=== PATIENT | female | born 1990 | race Caucasian/White ===

== ENCOUNTER 2021-09-19 13:47 | Outpatient (CLI) | payer BC, SELFPAY ==
--- NOTE | 2021-09-19 14:00 | CRLHL7_ITS ---
For Patients: As a result of the Century Cures Act, medical imaging exams and procedure reports are released immediately into your electronic medical record. You may view this report before your referring provider. If you have questions, please contact your health care provider. INDICATION: SIZE LESS THAN DATES COMPARISON: 08/21/2021 TECHNIQUE: Real time leary scale imaging of the fetus was performed. FINDINGS: Sonographic imaging demonstrates a single living intrauterine gestation. Fetus demonstrates a regular cardiac rate of 148 beats per minute. Fetus has a breech position. The placenta lies anteriorly without evidence of placenta previa. Amniotic fluid volume appears normal and there is a single deepest vertical pocket: 4.2 cm. The estimated weight is 2542gm which lies at the 22nd %. On the prior OB ultrasound exam dated 08/21/2021 the estimated weight was at the 14th%. BPD 13th percentile. HC 23rd percentile. AC 19th percentile. FL 29th percentile. The HC/AC ratio measures 1.05 range (0.93-1.11). IMPRESSION: Sonographic gestational age 35 weeks 1 day and sonographic due date 10/23/2021. Sonographic age 6 days behind the clinical age. Estimated weight 22nd percentile. Abdominal circumference 19th percentile. Dictated by Tacho Lopez MD @ 09/19/2021 2:41:25 PM (Electronically Signed)
== END 2021-09-19 13:48 | disposition home or self-care (01) ==
LOC: US 13:48
PROVIDERS: Visit Provider Advanced Practice Midwife
DX: O36.5930 Maternal care for other known or suspected poor fetal growth, third trimester, not applicable or unspecified (principal); Z3A.35 35 weeks gestation of pregnancy
CPT/HCPCS: 76816

== ENCOUNTER 2021-09-19 16:02 | Outpatient (CLI) | payer BC, SELFPAY ==
[2021-09-20 17:54] LABS: Strep B DNA Probe NEGATIVE (Negative)
== END 2021-09-19 16:03 | disposition home or self-care (01) ==
LOC: NFLDREF 16:02
PROVIDERS: Visit Provider Advanced Practice Midwife
DX: Z34.83 Encounter for supervision of other normal pregnancy, third trimester (principal); Z3A.36 36 weeks gestation of pregnancy
CPT/HCPCS: 87081; 87653

== ENCOUNTER 2021-10-02 15:25 | Outpatient (CLI) | payer BC, SELFPAY ==
[2021-10-02] VITALS (20 sets, daily range): BP systolic 81–127; BP diastolic 45–88; PULSE 70–123; RESP 16; TEMP 36.7; O2SAT 100
[2021-10-02 17:21] LABS: Basophils Percent Auto 0.1 % (0.0-3.0); Hematocrit 36.7 % (33.0-51.0); Hemoglobin* 12.7 gm/dL (12.0-16.0); Immature Granulocytes Abs Auto 0.03 K/uL (0.00-0.30); Lymphocytes Percent Auto 22.2 % (20-44); Mean Corpuscular HGB Conc 35 gm/dL (32-36); Mean Corpuscular Hemoglobin 33 pg (26-34); Mean Corpuscular Volume 95 fL (80-100); Monocytes Percent Auto 7.2 % (0.0-11.0); Neutrophils Percent Auto 69.2 % (42.0-72.0); Platelet Count* 193 K/uL (140-440); RDW Coefficient of Variation % 12.7 % (11.5-15.5); Red Blood Count 3.87 m/uL (4.00-5.20); White Blood Count* 11.06 K/uL (4.50-11.00)
[2021-10-02 17:26] LABS: Slide Review Reflex No
[2021-10-02] MEDS: LACTATED RINGERS 1000 ML 1,000 ML 125 ML IV ×2 (18:18→19:41)
[2021-10-02] MEDS: NIFEdipine 10 MG CAPSULE PO (19:39)
--- NOTE | 2021-10-02 20:37 | P.OBLDTN_ITS ---
OB - Triage/Final Diagnosis Visit Information Date Seen: 10/02/21 Narrative: The patient is a 31 year old 5 para 1041 at 37 6/7 weeks gestation by LMP, who presents with contractions. She admits that she had been keeping up with fluid hydration today, and has had diarrhea as well. Her fetus was active. She denied leakage of fluid, unusual vaginal discharge, or vaginal bleeding. No fevers or chills. No nausea or vomiting. Fetus is known to be in a breech presentation. She is scheduled for a primary low transverse section next Friday. She declined ECV. Reason for evaluation: threatened labor Evaluation Cervical dilation (cm): 0 Laboratory results: Laboratory Tests 10/02/21 10/02/21 10/02/21 Range/Units 17:05 17:05 17:05 WBC 11.06 H (4.50-11.00) K/uL RBC 3.87 L (4.00-5.20) m/uL Hgb 12.7 Cancelled Hct 36.7 (33.0-51.0) % MCV 95 (80-100) fL MCH 33 (26-34) pg MCHC 35 (32-36) gm/dL RDW Coeff of Claudia 12.7 (11.5-15.5) % Plt Count 193 (140-440) K/uL Neut % (Auto) 69.2 (42.0-72.0) % Lymph % (Auto) 22.2 (20-44) % [place] % (Auto) 7.2 (0.0-11.0) % Eos % (Auto) 1.0 (0.0-7.0) % Baso % (Auto) 0.1 (0.0-3.0) % Neut # (Auto) 7.70 H (1.7-7.0) K/uL Lymph # (Auto) 2.50 (0.90-2.90) K/uL [place] # (Auto) 0.80 (0.00-0.90) K/UL Eos # (Auto) 0.10 (0.00-0.50) K/uL Baso # (Auto) 0.00 (0.00-0.30) K/uL Abs Immat Gran (auto) 0.03 (0.00-0.30) K/uL Blood Type O Positive Antibody Screen NEGATIVE Vital signs: Vital Signs - 24 hr 10/02/21 15:40 10/02/21 15:44 10/02/21 15:49 Pulse Rate 117 H Blood Pressure 127/88 Pulse Oximetry 100 100 10/02/21 16:59 10/02/21 17:00 10/02/21 17:05 Pulse Rate 77 Blood Pressure 84/54 L Pulse Oximetry 100 100 10/02/21 17:10 10/02/21 17:14 10/02/21 17:15 Pulse Rate 83 Blood Pressure 81/45 L Pulse Oximetry 100 100 10/02/21 17:19 10/02/21 17:20 10/02/21 17:25 Pulse Rate 76 Blood Pressure 84/54 L Pulse Oximetry 100 100 10/02/21 17:30 10/02/21 17:35 10/02/21 17:40 Pulse Rate Blood Pressure Pulse Oximetry 100 100 100 10/02/21 17:45 10/02/21 18:19 10/02/21 19:26 Pulse Rate 81 92 Blood Pressure 111/73 109/69 Pulse Oximetry 100 Fetus (Single) Heart Rate Baseline: 130 Winding Rack Operator Variability: Moderate (11-25) Monitor Accelerations: Present Monitor Decelerations: None Station: -4 Final Diagnosis (1) Irregular contractions: Status: Acute Problem details: The patient was experiencing uterine contractions upon admission. These decreased substantially following IV fluid hydration and administration of oral nifedipine. I suspect that she was dehydrated from poor oral fluid intake and diarrhea. Signs symptoms of labor were reviewed and the patient was encouraged to return if contractions should increase in intensity and frequency, or if she should experience any other signs or symptoms of impending labor. Otherwise she will follow up on Friday with me in the [facility] as scheduled.
--- NOTE | 2021-10-02 22:47 | PC.OBNST ---
NST Note NST Note Start: 10/02/21 16:35 Freq: ONCE Status: Active Protocol: Document 10/02/21 21:00 EGM (Rec: 10/02/21 22:44 EGM [id number]) NST Note 5 Para (# of births) 1 EDC 10/17/21 Patient Presented with Complaint(s) of Contractions/cramping Other Complaints Patient reports contractions overnight and through the day today accompanied by diarrhea. Reactive Yes Appropriate for Gestational Age Yes KEKE Pickard RN Date 10/02/21 Reactive Yes Appropriate for Gestational Age Yes KEKE Rivero RN Date 10/02/21 OB NST charge Yes Provider Evaluation of EFM Strip: Reactive: [] Appropriate for Gestational Age: [] Comments:
== END 2021-10-02 21:10 | disposition home or self-care (01) ==
LOC: OB OUT 15:27 → OB 15:28
PROVIDERS: Obstetrics & Gynecology; Visit Provider Advanced Practice Midwife
DX: O47.1 False labor at or after 37 completed weeks of gestation (principal); Z3A.37 37 weeks gestation of pregnancy
CPT/HCPCS: 36415; 59025; 85018; 85025; 86850; 86900; 86901; 99211; 99213; A9270; J7120

== ENCOUNTER 2021-10-10 05:04 | Inpatient (IN) | payer BC, SELFPAY ==
[2021-10-10] VITALS (21 sets, daily range): BP systolic 102–130; BP diastolic 60–80; PULSE 68–105; RESP 14–16; TEMP 36.8–37.3; O2SAT 97–100; BMI 27.8
[2021-10-10 05:43] LABS: Basophils Absolute Auto 0.02 K/uL (0.00-0.30); Basophils Percent Auto 0.2 % (0.0-3.0); Eosinophils Absolute Auto 0.15 K/uL (0.00-0.50); Eosinophils Percent Auto 1.4 % (0.0-7.0); Hematocrit 36.2 % (33.0-51.0); Hemoglobin* 12.5 gm/dL (12.0-16.0); Immature Granulocytes Abs Auto 0.02 K/uL (0.00-0.30); Lymphocytes Absolute Auto 2.57 K/uL (0.90-2.90); Lymphocytes Percent Auto 24.6 % (20-44); Mean Corpuscular HGB Conc 35 gm/dL (32-36); Mean Corpuscular Hemoglobin 33 pg (26-34); Mean Corpuscular Volume 96 fL (80-100); Monocytes Percent Auto 7.5 % (0.0-11.0); Neutrophils Absolute Auto 6.92 K/uL (1.7-7.0); Neutrophils Percent Auto 66.1 % (42.0-72.0); Platelet Count* 209 K/uL (140-440); RDW Coefficient of Variation % 12.9 % (11.5-15.5); Red Blood Count 3.78 m/uL (4.00-5.20); White Blood Count* 10.46 K/uL (4.50-11.00)
[2021-10-10 05:52] LABS: Slide Review Reflex No
[2021-10-10 06:20] LABS: SARS PCR* Negative SARS-CoV-2 (Negative)
--- NOTE | 2021-10-10 08:28 | PM.OBPRCCS ---
Procedure Pre-op/Post-op diagnoses: Pre-Op/Post-Op Diagnoses Operation Date: 10/10/21 07:15 <No data on this case meets the specified criteria> Procedure Done: Global Procedure Details: Procedures Operation Date: 10/10/21 07:15 Actual Procedure Side Surgeon p Primary Section Susana Wright MD Estimated blood loss (mL): 502 Disposition: floor Anesthesia type: Spinal Complications: None. Narrative: PREOPERATIVE DIAGNOSES: 1. Intrauterine at 39 0/7 weeks' gestation. 2. rick breech presentation. POSTOPERATIVE DIAGNOSES: 1. Intrauterine at 39 0/7 weeks' gestation. 2. rick breech presentation. NAME OF PROCEDURE: Primary low transverse section. SURGEON: Adriana. ANESTHESIA: Spinal. COMPLICATIONS: None. ESTIMATED BLOOD LOSS: 500 to mL. DRAINS: Modi to gravity. FINDINGS: Live-born female , rick breech presentation, Apgars 8 and 8 at 1 and 5 minutes respectively. weight 3150 g (6 # 15 oz). Normal appearing uterus, tubes, and ovaries. PROCEDURE: After obtaining informed consent, the patient was taken to the operating room where spinal anesthesia was obtained and found to be adequate. She was prepared and draped in the normal sterile fashion in the dorsal supine position with a leftward tilt. A Pfannenstiel skin incision was made with a scalpel. This incision was carried down to the underlying layer of fascia with the Bovie. The fascia was incised in the midline and the incision extended laterally. The superior and inferior aspects of the fascial incision were grasped with Matthew clamps, elevated and the underlying rectus muscles dissected off sharply and with electrocautery. The rectus muscles were then in the midline. The Burak O retractor was then placed into the incision. The lower uterine segment was then incised in a transverse fashion with the scalpel. Upon entry into the uterus, clear amniotic fluid was noted. The uterine incision was extended laterally with blunt finger fractionation. The infant's breecj was delivered atraumatically, followed by the remainder of the legs, torso, arms, and then had while maintaining flexion of the neck. The nose and mouth were suctioned with the bulb suction. The cord was doubly clamped and cut after a 30 second delay and the infant was handed off the field for evaluation. The placenta was delivered spontaneously with umbilical cord traction and fundal massage. The uterus was cleared of all clots and debris. The uterine incision was reapproximated in a running locking fashion with a 0 chromic suture. A 2nd layer of the same suture was used to imbricate in horizontal fashion. The gutters were irrigated and suctioned. All instruments and retractors were removed. The anterior peritoneum was reapproximated in a running fashion with a 3-0 Vicryl suture. The subfascial tissues were carefully inspected and hemostasis assured. The fascia was reapproximated in a running fashion with a looped 0 Maxon suture. The subcutaneous tissues were copiously irrigated. Hemostasis was assured. The subcutaneous fat layer was reapproximated with interrupted sutures of 3-0 plain gut. The skin was closed in a subcuticular fashion with 4-0 Vicryl. LiquiBand and dressing were applied. The patient tolerated the procedure well. A TAP block was administered by anesthesia at the conclusion of the procedure. Sponge, lap, needle, and instrument counts were reported as correct x2. The patient was taken to the recovery room, awake, and in stable condition. She did receive 2 grams of IV Ancef preoperatively. OB Delivery Proc Additional Procedures Tubal Ligation at the time of : No
--- NOTE | 2021-10-10 08:34 | W.ANESCHARGE ---
Anesthesia Charges Start Date/Time Anesthesia Start Date: 10/10/21 Anesthesia Start Time: 07:11 Stop Date/Time Anesthesia Stop Date: 10/10/21 Anesthesia Stop Time: 08:30 Summary Emergency: No
--- NOTE | 2021-10-10 09:05 | P.NB_ITS ---
Nerve Block Nerve Block Date Seen: 10/10/21 Type of block requested by surgeon for post-operative analgesia: TAP Side: bilateral Time out performed: Yes Verification of patient name: Yes Verification of date of : Yes Site marking: site marked Name of person performing procedure: Solomon Continuous monitoring Was continuous monitoring of O2 sat, B/P, floor worker well service, recorded every 15 minutes?: Yes Procedure Checklist: sterile prep, needles and gloves Ultrasound guided. Images saved: Yes Medications given in 5ml increments after negative aspiration: Marcaine %: 0.25 mL: 30 Needle gauge: 20 and Exparel mL: 10 Patient tolerated procedure well: Yes Additional comments: Needle noted adjacent to nerve Block Charges Block Charge (with Pro Fee): TAP Bilateral Use of Ultrasound Machine for Block: Yes- US Guidance/pain block
--- NOTE | 2021-10-10 09:05 | W.ANESCHARGE ---
Anesthesia Charges Start Date/Time Anesthesia Start Date: 10/10/21 Anesthesia Start Time: 07:11 Stop Date/Time Anesthesia Stop Date: 10/10/21 Anesthesia Stop Time: 08:30 Summary Emergency: No
[2021-10-10] MEDS: KETOROLAC 30 MG/ML inj IVP ×2 (14:25→20:14)
[2021-10-10] MEDS: SODIUM CHLORIDE 0.9 % (FLUSH) 10 ML SYRINGE IVF (14:26)
[2021-10-11 00:31] VITALS: BP 103/69; PULSE 77; RESP 14; TEMP 37.1; O2SAT 96
[2021-10-11] MEDS: KETOROLAC 30 MG/ML inj IVP ×3 (02:31→15:08)
[2021-10-11 03:45] VITALS: BP 104/70; PULSE 76; RESP 16; TEMP 36.6; O2SAT 96
--- NOTE | 2021-10-11 08:18 | P.OBPN_ITS ---
OB - PN: A/P Assessment and Plan (1) Status post section routine follow-up: Status: Acute (2) Lactating mother: Status: Acute Plan Post op day 1. -Continue routine PP cares , having some difficulty with latch -may see prior to discharge Chest pain -likely air from -continue mylicon -encouraged ambulation -notify if worsens, or becomes SOB Acute anemia -asymptomatic Plan day: 1 Plan: routine postop care OB - PN: Subj Subjective Time Seen by Provider: 08:18 Date Seen: 10/11/21 Patient comments: pain well controlled (Tolerable. ), incisional pain, tolerating diet and flatus present [place] infant status: (Having some difficluty w/ latch) [place] feeding status: exclusively Narrative: Jessica is a at 3.0 weeks. She had a primary for a breech infant. She is post op day 1. Her vitals have remained stable, and she is afebrile. Urine output is adequate and her thayer catheter remains in place. Her pain is well controlled with current medications. She did ambulate yesterda y w/o difficulty.. She is , and having some difficulty w/ keeping baby latched. She is having a tightness/pressure feeling in the center of her chest near her xiphoid process. She sates this feels similar to after her laparoscopic procedure and feels like trapped air. Denies any SOB. OB - PN: Obj Exam Physical Exam: Vital signs: Temp Pulse Resp BP Pulse Ox 97.9 F 76 16 104/70 96 10/11/21 03:45 10/11/21 03:45 10/11/21 03:45 10/11/21 03:45 10/11/21 03:45 Constitutional: Constitutional: no acute distress Routine HEENT Exam: Head: Present normocephalic Routine Neck Exam: Neck: Present full ROM Routine Respiratory Exam: Respiratory: Present CTA bilaterally Routine Cardiovascular Exam: Cardiovascular: Present RRR Routine Abdominal Exam: Abdominal: Present normal bowel sounds Routine Extremities Exam: Extremities: Present full ROM; Absent pedal edema Routine Back/Spine/Pelvis Exam: Back/Spine: Present full ROM Routine Skin Exam: Skin: Present wounds (Dressing on, clean/dry/intact) Routine Neurological Exam: Neurological: Present alert and oriented X3 Routine Psychiatric Exam: Psychiatric: Present normal affect Wound Management: Examination: Present dressed, clean and dry Urinary Catheter Management: Urethral: Cath placed during this visit: yes Urethral indwelling: Yes Reason for continuing: decision to DC catheter Insertion date: 10/10/21 Insertion time: 07:19 OB - PN: Obj Data Labs Labs: Laboratory Results - last 24 hr 10/11/21 06:17 Hgb 11.0 L
[2021-10-11] MEDS: DOCUSATE SODIUM 100 MG CAPSULE PO (08:56)
[2021-10-11 09:20] VITALS: BP 98/67; PULSE 82; RESP 16; TEMP 36.7; O2SAT 97
[2021-10-11] MEDS: CITALOPRAM HYDROBROMIDE 20 MG TABLET PO (10:58)
[2021-10-11 16:01] VITALS: BP 99/65; PULSE 90; RESP 16; TEMP 36.8; O2SAT 96
[2021-10-11] MEDS: IBUPROFEN 600 MG TABLET PO (19:34)
[2021-10-12 00:04] VITALS: BP 120/80; PULSE 95; RESP 16; TEMP 36.2; O2SAT 99
[2021-10-12] MEDS: ACETAMINOPHEN 500 MG TABLET 1000 MG PO ×2 (00:18→08:52)
[2021-10-12] MEDS: IBUPROFEN 600 MG TABLET PO ×2 (04:26→10:20)
[2021-10-12 08:45] VITALS: BP 107/66; PULSE 91; RESP 18; TEMP 36.5
[2021-10-12] MEDS: CITALOPRAM HYDROBROMIDE 20 MG TABLET PO (08:52)
[2021-10-12] MEDS: DOCUSATE SODIUM 100 MG CAPSULE PO (08:52)
--- NOTE | 2021-10-12 08:55 | P.DS_ITS ---
DS: Providers Provider Date Seen: 10/12/21 Date of admission: 10/10/21 05:04 Primary care physician: Not a Local Provider Admitting Clinician: Susana Wright MD Attending Physician on discharge: Susana Wright MD Date of Discharge: 10/12/21 DS: Diagnosis Discharge Diagnosis (1) Status post section routine follow-up: Status: Acute (2) Lactating mother: Status: Acute Exam Const: Vital Signs, click to edit/add: Vital Signs - 24 hr 10/11/21 09:20 10/11/21 16:01 10/12/21 00:04 Temperature 98.1 F 98.3 F 97.2 F L Pulse Rate [Left B lood Pressure Cuff ] 82 90 95 Respiratory Rate 16 16 16 Blood Pressure [Le ft Arm] 98/67 99/65 120/80 Pulse Oximetry 97 96 99 10/12/21 08:45 Temperature 97.7 F Pulse Rate [Left B lood Pressure Cuff ] 91 Respiratory Rate 18 Blood Pressure [Le ft Arm] 107/66 Pulse Oximetry Documenting provider has reviewed patient's vital signs: yes Common normals: no apparent distress, average body habitus, oriented x3, no limitations, healthy appearing, alert and well nourished HENMT: Common normals: normocephalic and hearing grossly normal bilaterally Head and scalp: normal to inspection and normocephalic Face and sinus: normal facial exam Eye: General eye: normal appearance of both eyes Neck & C-Spine: Common normals: full ROM, no lymphadenopathy, supple, no meningeal signs and no JVD Resp: Common normals: normal respiratory effort, no retractions, no use of accessory muscles and clear to auscultation bilaterally Auscultation: clear to auscultation bilaterally Cardio: Common normals: no JVD, regular rate, regular rhythm, S1 normal heart sound, S2 normal heart sound, no gallops, no clicks, no murmurs and no rub Rate: regular rate Rhythm: regular rhythm Heart sounds: S1 normal and S2 normal GI: Common normals: Normal to inspection, nondistended, normoactive bowel sounds present and soft to palpation Inspection: normal to inspection Palpation: soft and tender : Common normals: external appearance normal OB/external & speculum: Yes deferred Uterus: U/2 Lochia: small Manual OB Exam: deferred Extremity: Common normals: full ROM Neuro: Common normals: oriented x3 Sensorium/orientation: alert Meningeal signs: no meningeal signs Psych: Common normals: mental status grossly normal and thought process normal Thought process: normal thought process Skin: Skin images (female): 1. LT scar. No redness, swelling, or drainage. Well approximated. OB - DS: Summary Hospital Course Hospital Course: The patient is a 31 year old G 5 P 2 at 39.2 weeks gestation that was admitted to the [facility] on 10/10/21 for primary for breach presentation. She had an uncomplicated delivery. She delivered a viable female . She is breast feeding which is going well. the patient has done well. She had some chest tightness in the middle of her chest yesterday which is improved today. She states that the pain is worse when she is laying down and that it feels like the gas pain she experienced after a previous surgery. Declines need for further investigation or intervention. She feels that she is stable on her Citalopram and denies need for dose adjustment or refills at this time. Peripartum Data Procedures: Procedures Operation Date: 10/10/21 07:15 Actual Procedure Side Surgeon p Primary Section Susana Wright MD complications: none Infant Gender: Female Infant Discharge Plan: Home Status at Discharge Functional status at discharge: independent ambulation Overall status at discharge: patient is progressing back to baseline Time Spent with Patient Time attestation: Total time spent providing and/or coordinating discharge services: Discharge Plan Discharge Disposition: Home, Self-Care Date of Admission: 10/10/21 05:04 Primary Care Provider: Provider,Not a Local Condition: Stable Anticipated Discharge Date/Time: 10/12/21 12:00 Discharge Medications: New ibuprofen 600 mg Tablet 600 mg PO Q6H PRN (Reason: Pain) Qty: 60 0RF Continued magnesium oxide 400 mg (241.3 mg magnesium) tablet 400 mg PO QDAY 0RF doxylamine succinate 25 mg tablet 25 mg PO ONCE 0RF prenat.vits,chad,[id number] Tablet 1 tab PO QDAY 0RF citalopram 20 mg tablet 20 mg PO QDAY 0RF Probiotic Acidophilus 1.5 mg (250 million cell) capsule 1,000 mmu cells PO QDAY 0RF docusate sodium [Colace] 100 mg capsule 100 mg PO QDAY Qty: 100 0RF Rx Instructions: Take 1-2 tablets daily as needed for constipation. Discontinued valacyclovir [Valtrex] 500 mg tablet 500 mg PO BID Qty: 60 0RF Discharge Orders: Discharge Order (Routine); Ordered 10/12/21 Ordered By: Evelin Maldonado Patient Education: OB /Breast Feeding Activity Restrictions/Additional Instructions: Discharge instructions were reviewed with the patient including signs and symptoms of infection and home going medications.? Lifting Restrictions: 10 pounds for 6? weeks? ?? Do not drive while taking pain meds.? Off Work or School for 6 weeks.? ?? Symptoms to report to doctor:? -Bleeding that saturates more than one pad per hour? -Passing clots larger than the size of a golf ball? -Pain not relieved by prescribed medication? -Fever above 100.4 degrees Fahrenheit? -A foul vaginal odor? -Difficulty in emotions, mood and functions? -Thoughts of hurting yourself and/or ? -Painful, reddened area in your breast? -Any drainage, redness or tenderness in your IV/epidural site? -Severe headache that doesn't improve after taking medications? -Changes in vision, including temporary loss of vision, blurred vision, and/or light sensitivity? -Upper abdominal pain (usually under ribs on the right side)? -Decrease in urination or painful, frequent urinating? -Chest pain? -Shortness of breath? -Tenderness or pain with redness and/swelling in the calf(s) of your leg? ?? Follow Up in clinic in 2 and 6 weeks.? ?? consultation services are available to all mothers and babies for the first year after delivery.? To make an appointment, please call [phone].? Activity Level: Light activity Activity Detail: lift no more than 10lbs for 6 weeks Discharge Diet: Regular Follow Up Appointments: Provider,Not a Local [Primary Care Provider] - Forms: MyHealth Info Instructions
== END 2021-10-12 11:35 | disposition home or self-care (01) | DRG 540 ==
PROVIDERS: Admitting Provider Obstetrics & Gynecology; Visit Provider Obstetrics & Gynecology
PROC: 10D00Z1 Extraction of Products of Conception, Low, Open Approach (ICD-10-PCS; CPT 59514; principal; 2021-10-10 07:00)
DX: O32.1XX0 Maternal care for breech presentation, not applicable or unspecified (principal); O99.344 Other mental disorders complicating childbirth; F41.8 Other specified anxiety disorders; O98.32 Other infections with a predominantly sexual mode of transmission complicating childbirth; A60.00 Herpesviral infection of urogenital system, unspecified; Z3A.39 39 weeks gestation of pregnancy; Z37.0 Single live birth
CPT/HCPCS: 01961; 36415; 64488; 76942; 85018; 85025; 86850; 86900; 86901; 87635; A9270; C9290; J1885; J2274; J2370; J2405; J2590; J3490